=== PATIENT | male | born 1995 | race Caucasian/White ===

== ENCOUNTER 2021-02-02 20:26 | Emergency (ER) | payer OTHER ==
[2021-02-03] MEDS ORDERED: NORCO 5-325 TA1 EACH PO (00:52)
== END 2021-02-03 01:05 | disposition home or self-care (01) ==
LOC: FER 20:26
DX: S99.921A Unspecified injury of right foot, initial encounter (principal); F17.210 Nicotine dependence, cigarettes, uncomplicated; W10.1XXA Fall (on)(from) sidewalk curb, initial encounter; X50.1XXA Overexertion from prolonged static or awkward postures, initial encounter
CPT/HCPCS: 73630